=== PATIENT | female | born 1995 | race African-American/Black ===

== ENCOUNTER 2024-06-03 19:25 | Emergency (ER) | payer BC, SELFPAY ==
[2024-06-03 19:31] VITALS: BP 123/91
[2024-06-03 19:49] LABS: % Basophils 0.6 % (0-2); % Eosinophils 3.6 % (0-6); % Immature Granulocytes 0.2 % (0-0.5); % Lymphocytes 14.4 % (20.5-51.1); % Monocytes 4.8 % (1.7-9.3); % Neutrophils 76.4 % (42.2-75.2); Absolute Basophils 0.1 10^3/uL (0-0.2); Absolute Eosinophils 0.4 10^3/uL (0-0.7); Absolute Lymphocytes 1.7 10^3/uL (1.2-3.4); Absolute Monocytes 0.6 10^3/uL (0.1-0.6); Absolute Neutrophils 8.8 10^3/uL (1.4-6.5); Hematocrit 41.3 % (37.0-47.0); Hemoglobin 14.4 g/dL (12.0-16.0); Mean Corp Hgb Conc. 34.9 g/dL (33.0-37.0); Mean Corpuscular Hgb 29.9 pg (27.0-31.0); Mean Corpuscular Volume 85.7 fL (81.0-99.0); Mean Platelet Volume 8.6 fL (7.4-10.4); Nucleated Red Blood Cells % 0 %; Platelet Count 446 10^3/uL (130-400); Red Blood Cell Count 4.82 10^6/uL (4.20-5.40); Red Cell Dist. Width 11.9 % (11.5-14.5); White Blood Cell Count 11.6 10^3/uL (4.8-10.8)
[2024-06-03 20:06] LABS: HCG, Serum Qualitative Screen Negative
[2024-06-03 20:09] LABS: ALT (SGPT) 112 U/L (0-35); AST (SGOT) 50 U/L (14-36); Alkaline Phosphatase 149 U/L (38-126); Blood Urea Nitrogen 10 mg/dl (7-17); Calcium 9.6 mg/dl (8.4-10.2); Carbon Dioxide 27 mmol/L (22-30); Chloride 103 mmol/L (98-107); Glucose 96 mg/dl (70-99); Potassium 4.6 mmol/L (3.5-5.1); Sodium 139 mmol/L (135-145); Total Bilirubin 0.4 mg/dl (0.2-1.3); Total Protein 8.2 g/dl (6.3-8.2); eGFR > 60.00
--- NOTE | 2024-06-04 01:10 | ED.GENMED ---
History of Present Illness
<Jose Ferro DO, Resident - Last Filed: 06/04/24 02:05>
General
Chief Complaint: Skin Problem
Source: patient
Time Seen by Provider: 06/04/24 01:07
History of Present Illness
History of Present Illness:
28-year-old female with no reported past medical history reports for recurrent gluteal region abscesses. Patient reports this is her third episode in the last 2 months. These started in March where she had an abscess that was drained, she was
started on course of oral Bactrim and clindamycin which she completed. She repeats that she had a recurrent episode 1 month after this 1 which was also drained and she was treated with an oral course of Bactrim. Patient reports approximately 2
days ago she noticed a recurrence of the perianal pain, reports there was some serosanguineous drainage from the area. Patient reports she has seen her primary care physician for this and has a follow-up with dermatology next week.
Past History
<Jose Ferro DO, Resident - Last Filed: 06/04/24 02:05>
Past History
ED Past Medical History: Other (Recurrent gluteal abscess)
Review of Systems
<Jose Ferro DO, Resident - Last Filed: 06/04/24 02:05>
Review of Systems
Constitutional: Reports no symptoms; Denies fever or chills
Respiratory: Reports no symptoms
Cardiac: Reports no symptoms
ABD/GI: Reports no symptoms
: Reports other (Perianal abscess, serosanguineous drainage)
Phy Exam
<Jose Ferro DO, Resident - Last Filed: 06/04/24 02:05>
General Physical Exam
General Presentation: well appearing and no apparent distress
Cardiovascular Exam
Cardiovascular Exam: regular rate/rhythm, no edema and no murmur
Pulmonary Exam
Pulmonary Exam: lungs clear, no respiratory distress and no crackles
Gastrointestinal Exam
Gastrointestinal Exam: non tender, soft and non distended
Skin Exam
Skin Exam: other (Physical exam chaperoned with attending physician. Perianal redness seen on left butt cheek, no fluctuance, no mobility. Tender to palpation)
Course
<Jose Ferro DO, Resident - Last Filed: 06/04/24 02:05>
Orders/Labs/Results
Orders:
Orders
06/03/24 19:35
Test Result ONCE
06/03/24 19:43
Complete Blood Count/With Diff Urgent
Comprehensive Metabolic Panel Urgent
HCG, Serum Qualitative Screen Urgent
06/04/24 01:43
Doxycycline [Vibramycin] 100 mg PO NOW STA
Abnormal Lab Results
06/03/24
19:43
WBC 11.6 H 10^3/uL
(4.8-10.8)
Plt Count 446 H 10^3/uL
(130-400)
Absolute Neuts (auto) 8.8 H 10^3/uL
(1.4-6.5)
Neutrophils % 76.4 H %
(42.2-75.2)
Lymphocytes % 14.4 L %
(20.5-51.1)
AST 50 H U/L
(14-36)
ALT 112 H U/L
(0-35)
Alkaline Phosphatase 149 H U/L
(38-126)
06/03/24 19:43
06/03/24 19:43
Vital Signs
Initial and Last Documented VS:
Initial Vital Signs
Temp Pulse Resp BP Pulse Ox
98.1 F 114 18 123/91 99
06/03/24 19:31 06/03/24 19:31 06/03/24 19:31 06/03/24 19:31 06/03/24 19:31
Last Documented Vital Signs
Temp Pulse Resp BP Pulse Ox
98.6 F 100 16 108/75 98
06/04/24 02:02 06/04/24 02:02 06/04/24 02:02 06/04/24 02:02 06/04/24 02:02
<Linda Nielsen MD - Last Filed: 06/04/24 02:10>
Orders/Labs/Results
Orders:
Orders
06/03/24 19:35
Test Result ONCE
06/03/24 19:43
Complete Blood Count/With Diff Urgent
Comprehensive Metabolic Panel Urgent
HCG, Serum Qualitative Screen Urgent
06/04/24 01:43
Doxycycline [Vibramycin] 100 mg PO NOW STA
Abnormal Lab Results
06/03/24
19:43
WBC 11.6 H 10^3/uL
(4.8-10.8)
Plt Count 446 H 10^3/uL
(130-400)
Absolute Neuts (auto) 8.8 H 10^3/uL
(1.4-6.5)
Neutrophils % 76.4 H %
(42.2-75.2)
Lymphocytes % 14.4 L %
(20.5-51.1)
AST 50 H U/L
(14-36)
ALT 112 H U/L
(0-35)
Alkaline Phosphatase 149 H U/L
(38-126)
06/03/24 19:43
06/03/24 19:43
Vital Signs
Initial and Last Documented VS:
Initial Vital Signs
Temp Pulse Resp BP Pulse Ox
98.1 F 114 18 123/91 99
06/03/24 19:31 06/03/24 19:31 06/03/24 19:31 06/03/24 19:31 06/03/24 19:31
Last Documented Vital Signs
Temp Pulse Resp BP Pulse Ox
98.6 F 100 16 108/75 98
06/04/24 02:02 06/04/24 02:02 06/04/24 02:02 06/04/24 02:02 06/04/24 02:02
<Jose Ferro DO, Resident - Last Filed: 06/04/24 02:05>
MDM/Problems Addressed
Differential Diagnosis Includes:
Cellulitis, renal abscess, MRSA
MDM/Problems Addressed:
28 female reports for recurrent gluteal abscess, this is her third episode in the last 2 months. Symptoms started 2 days ago, patient reports she did have serosanguineous drainage of the abscess this morning
Patient reports previously she was treated with incision and drainage and was given with oral courses of antibiotics. First episode was treated with oral course of Bactrim and clindamycin, second episode was just treated with drainage and oral
course of Bactrim which she completed 10 days prior to her visit today
In emergency department vitals are within normal limits, slightly tachycardic, white blood cells 11.6
Patient denies fever, no chills, no shortness of breath, no chest pain, no night sweats, temperature in emergency department 97.5
Heart and lungs clear, abdomen benign
Perianal area was examined with kraft digester operator, attending present in room and resident. Perianal rash, tender to palpation present on the left butt cheek in the perianal area. There is no fluctuance or mobility to this rash
Do not believe patient has a true abscess, it is likely cellulitis. Therefore there is nothing to incise and drain in emergency department
As recurrent it is suspected to be MRSA infection, recurrent abscesses also supports this diagnosis
Will initiate course of oral doxycycline, will give one-time dose in emergency department
Will prescribe doxycycline 100 twice daily for 7 days, will prescribe Bactroban ointment to be used in nares and anal area for 2 weeks
Encourage patient to use chlorhexidine body wash over her entire body for the next 2 weeks
Encourage patient to follow-up with PCP and dermatology who she says she has an appointment with coming up in the next week
Encouraged daily showers and warm compresses, encouraged pain management with Tylenol and ibuprofen
<Jose Ferro DO, Resident - Last Filed: 06/04/24 02:05>
*Critical Care Note
Total Time (30-74mins, 75-104mins- exclusive of procedures): Not Applicable
ED Attending Note
<Jose Ferro DO, Resident - Last Filed: 06/04/24 02:05>
-
Portions of this chart may have been created with voice recognition software.� Occasional wrong word or��sound alike� substitutions may have occurred due to the inherent limitations of voice recognition software.
<Linda Nielsen MD - Last Filed: 06/04/24 02:10>
ED Attending Note
Patient seen and examined by attending physician: Yes
I performed a history and physical exam of patient and discussed management with resident, I reviewed resident's note and agree with documented findings and plan of care.: Yes
ED Attending Note:
Patient arrives with erythematous, warm, and thickened tender skin along left perianal area. It does not extend into anus. Area less concerning for early abscess with overlying cellulitis. Patient reports she has had multiple abscesses in her
perianal and pelvic area over the last few months. Patient appears nontoxic. She is breathing comfortably. Area is nonfluctuant, therefore, I do not feel that an I&D is warranted. Patient encouraged to start doxycycline for likely MRSA as well
as starting Hibiclens body wash and mupirocin ointment to cut back on colonization of MRSA given that this is her fourth time having a skin infection in this area
Discharge Plan
Departure
Patient Disposition: Home (Routine Discharge)
Date of Disposition: 06/04/24
Time of Disposition: 02:05
Patient with high blood pressure during this ER visit?: Yes
Condition: Good
Discharge Problem:
Abscess and cellulitis of gluteal region
Instructions: Cellulitis (Skin Infection), Adult (DC), BLOOD PRESSURE
Prescriptions:
New
doxycycline hyclate 100 mg tablet
100 mg PO BID 7 Days Qty: 14 0RF
mupirocin 2 % ointment
1 applic topical BID 14 Days Qty: 22 0RF
Referrals:
Bessie Kearns, [Family Provider] - Call in 1-3 days for appt
Activity Restrictions/Additional Instructions:
Please use doxycycline 100 mg by mouth twice a day for a total of 7 days
Please use Bactroban, apply to your anal area and both nares daily for 2 weeks
Please use Hibiclens body cleanse wash over your entire body for 2 weeks
Please follow-up with your primary care physician, call in 3 days for an appointment
Please keep your appointment with dermatology, follow-up with them as needed
Please shower daily, use warm compresses as needed. Please control your pain with [id number] Tylenol and ibuprofen. Do not use more than 4000 mg of Tylenol in a 24 hours. Do not use more than 600 mg of ibuprofen in 8 hours
Please return to the emergency department if you notice any fever, severe pain, foul-smelling drainage, bloody drainage or with any concerns
Discharge Date and Time
Print Language: PAK[place]
[2024-06-04 02:02] VITALS: BP 108/75; BMI 31.5
[2024-06-04] MEDS: VIBRAMYCIN 100 MG PO (02:03)
== END 2024-06-04 02:16 | disposition home or self-care (01) ==
LOC: EMR 19:25
PROVIDERS: Emergency Medicine; EMERGENCY PHYSICIAN Emergency Medicine; FAMILY PHYSICIAN Family Medicine
DX: L02.31 Cutaneous abscess of buttock (principal); L03.317 Cellulitis of buttock
CPT/HCPCS: 99283; 80053; 84703; 85025

== ENCOUNTER → 2024-12-06 17:11 | Outpatient (REF) | payer BC, SELFPAY | LOC: RAD 17:11 | PROVIDERS: ATTENDING PHYSICIAN Family Medicine | DX: R10.9 Unspecified abdominal pain (principal) | CPT/HCPCS: 74178; Q9967 ==